=== PATIENT | female | born 1985 | race Caucasian/White ===

== ENCOUNTER 2017-02-26 01:20 | Emergency (ER) | payer OTHER ==
[~2017-02-26 01:20] MED LIST: ADDERALL PO; ADDERALL20 MG PO; ALPRAZOLAM; AMOXICILLIN PO; BACTRIM DS TABL1 TA1 PO; ELIMITE60 GM TOP; ERYTHROMYCIN; FLAGYL PO; GOLYTELY SOLU4000 ML PO; IBUPROFEN PO; IBUPROFEN800 MG PO; KEFLEX500 M1 PO; KETOPROFEN PO; LAMICTAL100 MG PO; MEDROL4 MG/DOSE- PO; METHADONE PO; MIRANA; NEURONTIN; NEURONTIN600 MG PO; NO MEDICATIONS; PERCOCET5/325 PO; PROZAC PO; SUBOXONE 8 MG-1 EAC1 SL; TOBREX3.5 GM OP; VALIUM2 MG PO; VICODIN 5/500 T1 TAB PO; ZYPREXA PO; ZYPREXA15 MG PO; [UNRECOGNIZED DRUG - OTHER]
[2017-02-26 02:03] LABS: URINE SOURCE CLEAN CATCH
[2017-02-26 02:06] LABS: MICRO INDICATED? NO; URINE APPEARANCE CLEAR; URINE BILIRUBIN NEG (NEG); URINE BLOOD NEG (NEG); URINE COLOR YELLOW; URINE GLUCOSE NEG (NORM); URINE KETONE NEG (NEG); URINE LEUKOCYTE ESTERASE NEG (NEG); URINE NITRATE NEG (NEG); URINE PH 7.5 (5-8); URINE PROTEIN NEG (NEG); URINE UROBILINOGEN 0.2 MG/DL (NORM)
[2017-02-26 02:15] LABS: AMPHETAMINE POS (NEG); BARBITURATES NEG (NEG); BENZODIAZEPINES NEG (NEG); COCAINE NEG (NEG); MARIJUANA NEG (NEG); OPIATES NEG (NEG); TRICYCLIC ANTIDEPRESSANTS NEG (NEG); U METHADONE NEG (NEG)
== END 2017-02-26 02:27 | disposition home or self-care (01) ==
LOC: SED 01:20
PROVIDERS: Emergency Medicine
DX: R11.2 Nausea with vomiting, unspecified (principal); R19.7 Diarrhea, unspecified; F19.10 Other psychoactive substance abuse, uncomplicated; F17.210 Nicotine dependence, cigarettes, uncomplicated; Z79.899 Other long term (current) drug therapy; Z91.040 Latex allergy status
CPT/HCPCS: 80307; 81003; 84703; 99284